=== PATIENT | female | born 1995 | race Caucasian/White ===

== ENCOUNTER 2019-08-07 15:03 | Emergency (ER) | payer BC, OTHER ==
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
[2019-08-07] MEDS ORDERED: Ketorolac INJ* 30 MG/ML 1 ML VIAL IM ONE (18:21)
[2019-08-07 19:06] VITALS: BP 127/62
== END 2019-08-07 19:04 | disposition home or self-care (01) ==
LOC: ED 15:03
DX: M54.9 Dorsalgia, unspecified (principal); M54.2 Cervicalgia; R51 Headache; V49.49XA Driver injured in collision with other motor vehicles in traffic accident, initial encounter; Y92.9 Unspecified place or not applicable
CPT/HCPCS: 72020; 72050; 72070; 72110; 96372; 99282; J1885